=== PATIENT | female | born 1965 | race Caucasian/White ===

== ENCOUNTER 2025-03-29 10:53 | Outpatient (OUT) | payer MEDICARE, SELFPAY ==
[2025-03-29 11:41] LABS: Alanine Aminotransferase 21 U/L (14-59); Albumin Globulin Ratio 0.9; Albumin Level 3.5 g/dL (3.4-5.0); Alkaline Phosphatase 74 U/L (46-116); Anion Gap 9.2; Aspartate Amino Transferase 19 U/L (15-37); BUN Creatinine Ratio 24.5; Bilirubin Total 0.2 mg/dL (0.2-1.0); Calcium 9.5 mg/dL (8.5-10.1); Carbon Dioxide 30.3 mmol/L (21.0-32.0); Chloride 102 mmol/L (98-107); Chol HDL Ratio 2.2; Cholesterol 159 mg/dL (<=200); Estimated GFR (African America >60 (>=60 mL/min/1.73m^2); Estimated GFR (Non-African Ame 58 (>=60 mL/min/1.73m^2); Globulin 3.9 g/dL; Glucose 83 mg/dL (74-106); HDL Cholesterol 71 mg/dL (40-60); Magnesium 1.7 mg/dL (1.8-2.4); Potassium 4.5 mmol/L (3.5-5.1); Sodium 137 mmol/L (136-145); Total Protein 7.4 g/dL (6.4-8.2); Triglycerides 57 mg/dL (<=150); VLDL CHOLESTEROL 11.4 mg/dL
== END 2025-03-29 10:54 | disposition home or self-care (01) ==
LOC: LAB 11:01
PROVIDERS: PCP Nurse Practitioner Family; Visit Provider Nurse Practitioner Family
DX: Z00.00 Encounter for general adult medical examination without abnormal findings (principal); E87.1 Hypo-osmolality and hyponatremia; Z13.220 Encounter for screening for lipoid disorders; Z13.6 Encounter for screening for cardiovascular disorders
CPT/HCPCS: 36415; 80053; 80061; 83735